=== PATIENT | male | born 1965 | race Two or more races ===

== ENCOUNTER 2025-07-22 02:31 | Emergency (ER) | payer MEDICAID, SELFPAY ==
[2025-07-22 02:33] VITALS: BMI 29.2
[2025-07-22 02:45] VITALS: BP 140/85; PULSE 115; RESP 18; TEMP 36.6; O2SAT 96
[2025-07-22] MEDS: HYDROcodone/APAP 5/325 TABLET 1 TAB PO (03:35)
[2025-07-22] MEDS: BACLOFEN 10 MG TABLET PO (03:35)
--- NOTE | 2025-07-22 03:47 | PD.EDBACK ---
ED Back Injury Pain RME/HPI General Chief Complaint: Back Pain/Injury Stated Complaint: BACK PAIN AND ARM PAIN Time Seen by Provider: 07/22/25 02:56 Arrival date/time: 07/22/25 02:31 60M with history cocaine use presents to ED with several days of upper back pain and muscle tightness that radiates to both arms. Patient denies fall/trauma, SOB, and CP. Patient works in the [employer]. Pain is worse with movement. Limitations: no limitations Related Data Home Medications ?Medication ?Instructions ?Recorded ?Confirmed rivaroxaban 10 mg tablet (Xarelto) 10 mg PO QDAY #11 tabs 06/03/15 Previous Rx's ?Medication ?Instructions ?Recorded Hydrocodone/Acetaminophen * (NORCO 1 tab PO Q6H PRN PAIN #30 tabs 06/01/15 10/325 *) lactulose 20 gram/30 mL oral 20 gm PO QID PRN moderate 06/01/15 solution constipation ##2 azithromycin 250 mg tablet See Rx Instructions PO .COMPLEX #6 04/27/20 (Zithromax Z-Srinivasa) tabs baclofen 5 mg tablet 5 mg PO BID PRN muscle spasm #14 07/22/25 tabs Allergies Allergy/AdvReac Type Severity Reaction Status Date / Time No Known Allergies Allergy Verified 07/22/25 02:32 Review of Systems Review of Systems Systems Reviewed: All systems reviewed, normal except as documented Musculoskeletal Musculoskeletal: Reports as per HPI and Reports back pain Past Medical History Past Medical History CARDIAC: Negative Congestive Heart Failure RESPIRATORY: Negative Chronic Obstructive Pulmonary Disease (COPD) GENITOURINARY: Negative Renal Disease ENDOCRINE: Negative Diabetes Mellitus Type 1 or Diabetes Mellitus Type 2 Social History SMOKING STATUS: Never smoker ED Exam General Limitations: Present no limitations General appearance: Present alert and in no apparent distress Head Head exam: Present atraumatic Neck Neck exam: Present normal inspection, full ROM and trachea midline Chest Chest inspection: Present normal inspection and symmetric chest wall rise Back Exam Back exam: Present normal inspection and full ROM Neurological Exam Neurological exam: Present alert and oriented X3 Psychiatric Psychiatric exam: Present normal affect and normal mood Skin Skin exam: Present warm, dry, intact and normal color Course Quality Measures none Orders Category Date Time Status Baclofen [Lioresal] Med 07/22/25 02:56 Discontinued 10 mg PO X1 ONE HYDROcodone*/APAP 5/325 [[place] 5/325] Med 07/22/25 02:56 Discontinued 1 tab PO X1 ONE Vital Signs Vital signs: Vital Signs Temperature 97.8 F 07/22/25 02:45 Pulse Rate 115 H 07/22/25 02:45 Respiratory Rate 18 07/22/25 02:45 Blood Pressure 140/85 H 07/22/25 02:45 Pulse Oximetry (%) 96 07/22/25 02:45 Oxygen Delivery Method Room Air 07/22/25 02:45 O2 at 96% on RA and WNLs Back Pain / Injury MDM Narrative MDM Narrative:: 60M with history cocaine use presents to ED with several days of upper back pain and muscle tightness that radiates to both arms. Patient denies fall/trauma, SOB, and CP. Patient works in the [employer]. Pain is worse with movement. Physical exam reveals normal WOB. ROM intact. No midline back tenderness. Speech normal. Gait normal. Patient is afebrile, calm, and alert. Meds and debt management counselor given. Patient data External records reviewed:: [facility] previous records Clinical information provided by:: patient Social determinants that could affect healthcare access:: substance use Patient has the following chronic illnesses:: drug use How is presenting disease/condition affected by chronic disease/condition?: exacerbated by Evaluation data The following diagnostics were reviewed and interpreted by me:: other (specify) (none) Lab and/or radiology exams considered but not ordered:: not ordered Interpretation Summary: n/a Medications / Prescriptions Medications or Prescriptions considered but not ordered:: ordered Medication administrations:: Medication Administration History Discontinued Medications Hydrocodone Bitart/Acetaminophen (Hydrocodone/Apap 5/325 Tablet) 1 tab PO X1 ONE Stop: 07/22/25 02:57 Last Admin: 07/22/25 03:35 Dose: 1 tab Documented By: JESÚS Baclofen (Baclofen 10 Mg Tablet) 10 mg PO X1 ONE Stop: 07/22/25 02:57 Last Admin: 07/22/25 03:35 Dose: 10 mg Documented By: JESÚS above Consultations Consultation(s) initiated? (list below): No Diagnosis Differential diagnosis back pain/injury: lumbar radiculopathy, sciatica, strain of lumbar region, renal colic, pyelonephritis, thoracic back pain, AAA and discitis Most likely diagnosis given after review of the tests above:: strain of thoracic region Admission Indicated Admission indicated?: not indicated Admission Request Was there a request for admission?: No Disposition Plan Disposition Plan: Discharge Discharge Attestation Discharge Attestation: The patient and all family members were given an opportunity to ask questions and understood the discharge instructions. Discharge instructions specifically effects, indications for sooner follow up or return to the emergency department, and the expected course of current diagnosis. Patient condition: Stable Discharge Plan Plan Patient Disposition: HOME (Self Care) Discharge Disposition comment: Stable Prescriptions/Referrals Prescriptions/Med Rec: New baclofen 5 mg tablet 5 mg PO BID PRN (Reason: muscle spasm) Qty: 14 0RF No Action lactulose 20 GM/30 ML syrup 20 gm PO QID PRN (Reason: moderate constipation) Qty: 2 0RF Hydrocodone/Acetaminophen * (NORCO 10/325 *) 1 TAB tablet 1 tab PO Q6H PRN (Reason: PAIN) Qty: 30 0RF rivaroxaban [Xarelto] 10 MG tablet 10 mg PO QDAY Qty: 11 azithromycin [Zithromax Z-Srinivasa] 250 mg tablet See Rx Instructions .ROUTE .COMPLEX Qty: 6 0RF Rx Instructions: take 500 mg today (day 1), then 250 mg for 4 days (days 2-5) Problem List Clinical Impression: Strain of thoracic region Patient/Caregiver Discharge Instructions Education Materials: ED Back Sprain/Strain Additional Instructions: Please follow-up with PCP within 24-48 hours and return immediately if symptoms worsen. If problem persists, recommend outpatient PT and/or MRI follow-up. In the meantime, rest, use ice/heat, and/or compression. Print Language: Czech Stand Alone Forms: Patient Portal Info Letter JAY/VIVIANE Supervising Physician JAY/VIVIANE Supervising Physician: Dr. Contreras
== END 2025-07-22 03:59 | disposition home or self-care (01) ==
LOC: SERX 03:00
PROVIDERS: Emergency Provider Emergency Medicine
DX: S29.012A Strain of muscle and tendon of back wall of thorax, initial encounter (principal); Z79.01 Long term (current) use of anticoagulants; X58.XXXA Exposure to other specified factors, initial encounter
CPT/HCPCS: 99283; A9270

== ENCOUNTER 2025-07-24 09:36 | Emergency (ER) | payer MEDICAID, SELFPAY ==
[2025-07-24 09:39] VITALS: BMI 29.2
[2025-07-24 09:47] VITALS: BP 143/85; PULSE 110; RESP 18; TEMP 36.8; O2SAT 96
--- NOTE | 2025-07-24 10:18 | EDNOTE_ITS ---
<Statement entered by Amira Hilario MD - 08/08/25 14:16> As co-signing physician, I was present and available for consult prn. I concur with the plan and care as documented by the midlevel provider. ED Back Injury Pain RME/HPI General Chief Complaint: Back Pain/Injury Stated Complaint: MID-UPPER BACK PAINX2 DAYS Time Seen by Provider: 07/24/25 09:40 Arrival date/time: 07/24/25 09:36 This is a 60-year-old male that comes into the emergency room with complaints of upper back pain in between his shoulder blades. 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 Patient states that he felt like he overdid it 1 day and was seen in the emergency room a couple days ago and thought he was prescribed Overton but in reality he was prescribed baclofen. Patient states that he was not given any and anti-inflammatories. Patient denies any trauma. Patient denies any numbness tingling. Related Data Home Medications ?Medication ?Instructions ?Recorded ?Confirmed rivaroxaban 10 mg tablet (Xarelto) 10 mg PO QDAY #11 t abs 06/03/15 Previous Rx's ?Medication ?Instructions ?Recorded Hydrocodone/Acetaminophen * (NORCO 1 tab PO Q6H PRN PA IN #30 tabs 06/01/15 10/325 *) lactulose 20 gram/30 mL oral 20 gm PO QID PRN moderate 06/01/15 solution constipation ##2 azithromycin 250 mg tablet See Rx Instructions PO .COM PLEX #6 04/27/20 (Zithromax Z-Srinivasa) tabs baclofen 5 mg tablet 5 mg PO BID PRN muscle spasm #14 07/22/25 tabs ibuprofen 800 mg tablet 800 mg PO Q6H PRN pain #20 t abs 07/24/25 Allergies Allergy/AdvReac Type Severity Reaction Status Date / Time No Known Allergies Allergy Verified 07/24/25 09:44 Review of Systems Review of Systems Systems Reviewed: All systems reviewed, normal except as documented Past Medical History Past Medical History CARDIAC: Negative Congestive Heart Failure RESPIRATORY: Negative Chronic Obstructive Pulmonary Disease (COPD) GENITOURINARY: Negative Renal Disease ENDOCRINE: Negative Diabetes Mellitus Type 1 or Diabetes Mellitus Type 2 Social History SMOKING STATUS: Never smoker ED Exam Narrative Physical exam: VITAL SIGNS: Reviewed. GENERAL APPEARANCE: Alert and interactive, follows commands, no acute distress HEAD AND FACE: Non-traumatic. ENT: PERRL, conjuctiva pink and clear, eyelid no trauma, Mucous membrane moist. NECK: Supple, nontender, no nuchal rigidity. CHEST: No tenderness, no crepitus, no paradoxical movement, no retractions. LUNGS: breathing even and unlabored HEART: Regular rate, cap refill less than 2 seconds ABDOMEN: Soft, nondistended, no guarding, nontender NEUROLOGICAL: Gross motor function intact sensory function intact, Appropriate for age. MUSCULOSKELETAL: low back nontender, full range of motion. no midline tenderness, no meningismus, no step offs, mild pain to palpation to upper back around lateral muscles of the upper back. No pain over spinal processes. EXTREMITIES: No redness no swelling no skin breakdown on bilateral foot and leg. Distal neurovascular status intact bilateral foot SKIN: Color pink, dry, no rash, no lacerations, no abrasions, no contusions. Course Quality Measures none Orders Category Date Time Status Ketorolac Inj [Toradol Inj] Med 07/24/25 10:18 Discontinued 60 mg IM X1 ONE Metoclopramide [Reglan] Med 07/24/25 10:18 Discontinued 10 mg PO X1 ONE Vital Signs Vital signs: Vital Signs Temperature 98.2 F 07/24/25 09:47 Pulse Rate 110 H 07/24/25 09:47 Respiratory Rate 18 07/24/25 09:47 Blood Pressure 143/85 H 07/24/25 09:47 Pulse Oximetry (%) 96 07/24/25 09:47 Oxygen Delivery Method Room Air 07/24/25 09:47 Back Pain / Injury MDM Narrative MDM Narrative:: I spoke to patient at length. And explained to him that he was not given Overton at that time. Patient was given baclofen to go home with. It appears that he was not given anti-inflammatories because it was thought that he was on Xarelto. Patient said he was only on Xarelto after surgery but he is no longer taking any medications at this time. Will prescribe anti-inflammatories and told patient to take this with muscle relaxers. Patient told to follow-up with primary provider in 1 to 2 days. [place] to emergency room symptoms change or worsen. Dragon dictation: Although this document has been carefully reviewed, there may still be some phonetic and other typographical errors. These errors are purely grammatical due to imperfections in the software program and should not be construed in any way to compromise the substance of the patient's medical care during this visit. Patient data External records reviewed:: [facility] previous records Clinical information provided by:: patient Social determinants that could affect healthcare access:: none Patient has the following chronic illnesses:: None How is presenting disease/condition affected by chronic disease/condition?: no chronic disease Evaluation data The following diagnostics were reviewed and interpreted by me:: other (specify) Lab and/or radiology exams considered but not ordered:: None Interpretation Summary: See note Medications / Prescriptions Medications or Prescriptions considered but not ordered:: None Medication administrations:: Medication Administration History Discontinued Medications Ketorolac Tromethamine (Ketorolac Inj 60 Mg/2 Ml Vial) 60 mg IM X1 ONE Stop: 07/24/25 10:19 Last Admin: 07/24/25 10:43 Dose: 60 mg Documented By: [facility] Metoclopramide HCl (Metoclopramide 5 Mg Tablet) 10 mg PO X1 ONE Stop: 07/24/25 10:19 Last Admin: 07/24/25 10:43 Dose: 10 mg Documented By: [facility] See [facility] Consultations Consultation(s) initiated? (list below): No Diagnosis Most likely diagnosis given after review of the tests above:: Back pain Admission Indicated Admission indicated?: not indicated Admission Request Was there a request for admission?: No Disposition Plan Disposition Plan: Discharge Discharge Attestation Discharge Attestation: The patient and all family members were given an opportunity to ask questions an d understood the discharge instructions. Discharge instructions specifically effects, indications for sooner follow up or return to the emergency department, and the expected course of current diagnosis. Patient condition: Stable Discharge Plan Plan Patient Disposition: HOME (Self Care) Patient condition on transfer: Stable Prescriptions/Referrals Prescriptions/Med Rec: New ibuprofen 800 mg tablet 800 mg PO Q6H PRN (Reason: pain) Qty: 20 0RF No Action lactulose 20 GM/30 ML syrup 20 gm PO QID PRN (Reason: moderate constipation) Qty: 2 0RF Hydrocodone/Acetaminophen * (NORCO 10/325 *) 1 TAB tablet 1 tab PO Q6H PRN (Reason: PAIN) Qty: 30 0RF rivaroxaban [Xarelto] 10 MG tablet 10 mg PO QDAY Qty: 11 azithromycin [Zithromax Z-Srinivasa] 250 mg tablet See Rx Instructions .ROUTE .COMPLEX Qty: 6 0RF Rx Instructions: take 500 mg today (day 1), then 250 mg for 4 days (days 2-5) baclofen 5 mg tablet 5 mg PO BID PRN (Reason: muscle spasm) Qty: 14 0RF Referrals: Noe Francisco MD [Primary Care Provider, Family Practice] - In 1 week Problem List Clinical Impression: Back pain Patient/Caregiver Discharge Instructions Discharge Activity: activity as tolerated Education Materials: ED Back Pain (Acute or Chronic) Additional Instructions: Eric un chasity con cordova medico de cabecera en las proximas 24-48 horas. Regrese a la ludwin de emergencias si hay evidencia de que los signos o sintomas empeoran. Print Language: Wolof Stand Alone Forms: Saida Award Info., Patient Portal Info Letter PA/SMASHER Supervising Physician PA/SMASHER Supervising Physician: [email or web address]
[2025-07-24] MEDS: KETOROLAC INJ 60 MG/2 ML VIAL IM (10:43)
[2025-07-24] MEDS: METOCLOPRAMIDE 5 MG TABLET 10 MG PO (10:43)
== END 2025-07-24 11:11 | disposition home or self-care (01) ==
PROVIDERS: Emergency Provider Nurse Practitioner Family; PCP Family Medicine
DX: S39.92XA Unspecified injury of lower back, initial encounter (principal); X50.0XXA Overexertion from strenuous movement or load, initial encounter
CPT/HCPCS: 96372; 99283; J1885; A9270

== ENCOUNTER 2025-08-02 00:13 | Emergency (ER) | payer MEDICAID, SELFPAY ==
[2025-08-02 00:14] VITALS: BMI 29.2
[2025-08-02 00:37] VITALS: BP 120/78; PULSE 112; RESP 18; TEMP 37.3; O2SAT 97
--- NOTE | 2025-08-02 00:48 | PD.EDURI ---
Upper Respiratory Inf. RME/HPI General Chief Complaint: Flu Like Symptoms Stated Complaint: COUGH X4 DAYS Time Seen by Provider: 08/02/25 00:44 Arrival date/time: 08/02/25 00:13 This is a case of 60-year-old male with no medical history came into the emergency room due to productive cough and nasal congestion for 4 days patient denies any chest pain or shortness of breath persistence of the symptoms this patient decided to start consult here in the emergency room Limitations: no limitations Related Data Home Medications ?Medication ?Instructions ?Recorded ?Confirmed rivaroxaban 10 mg tablet (Xarelto) 10 mg PO QDAY #11 tabs 06/03/15 Previous Rx's ?Medication ?Instructions ?Recorded Hydrocodone/Acetaminophen * (NORCO 1 tab PO Q6H PRN PAIN #30 tabs 06/01/15 10 *) lactulose 20 gram/30 mL oral 20 gm PO QID PRN moderate 06/01/15 solution constipation ##2 azithromycin 250 mg tablet See Rx Instructions PO .COMPLEX #6 04/27/20 (Zithromax Z-Srinivasa) tabs baclofen 5 mg tablet 5 mg PO BID PRN muscle spasm #14 07/22/25 tabs ibuprofen 800 mg tablet 800 mg PO Q6H PRN pain #20 tabs 07/24/25 albuterol sulfate 90 mcg/actuation 2 puff inhalation Q6H PRN 08/02/25 aerosol inhaler (Ventolin HFA) shortness of breath or wheezing #8.5 grams amoxicillin 875 mg-potassium 1 tab PO Q12H #20 tabs 08/02/25 clavulanate 125 mg tablet prednisone 20 mg tablet See Taper PO QDAY 5 days #5 tabs 08/02/25 promethazine-DM 6.25 mg-15 mg/5 mL 5 ml PO Q6H PRN cough #118 mL 08/02/25 oral syrup Allergies Allergy/AdvReac Type Severity Reaction Status Date / Time No Known Allergies Allergy Verified 08/02/25 00:13 Review of Systems Review of Systems Systems Reviewed: All systems reviewed, normal except as documented Constitutional Constitutional: Reports system reviewed and no additional complaints, except as documented and Reports as per HPI Cardiovascular Cardiovascular: Reports system reviewed and no additional complaints, except as documented and Reports as per HPI Respiratory Respiratory: Reports system reviewed and no additional complaints, except as documented and Reports as per HPI Gastrointestinal Gastrointestinal: Reports system reviewed and no additional complaints, except as documented and Reports as per HPI Genitourinary Genitourinary: Reports system reviewed and no additional complaints, except as documented and Reports as per HPI Musculoskeletal Musculoskeletal: Reports system reviewed and no additional complaints, except as documented and Reports as per HPI Neurologic Neurologic: Reports system reviewed and no additional complaints, except as documented and Reports as per HPI Past Medical History Past Medical History CARDIAC: Negative Congestive Heart Failure RESPIRATORY: Negative Chronic Obstructive Pulmonary Disease (COPD) GENITOURINARY: Negative Renal Disease ENDOCRINE: Negative Diabetes Mellitus Type 1 or Diabetes Mellitus Type 2 Social History SMOKING STATUS: Never smoker ED Exam General Limitations: Present no limitations General appearance: Present alert, in no apparent distress and other (Patient is awake alert oriented not in distress nontoxic looking well-hydrated well-nourished) Head Head exam: Present atraumatic, normocephalic and normal inspection Eye Eye exam: Present normal appearance, PERRL and EOMI ENT ENT exam: Present normal exam, normal oropharynx, mucous membranes moist and other (HEENT exam is normal and unremarkable) Neck Neck exam: Present normal inspection, full ROM and trachea midline; Absent tenderness, meningismus, lymphadenopathy or thyromegaly Chest Chest inspection: Present normal inspection and symmetric chest wall rise; Absent tenderness Respiratory Respiratory exam: Present normal lung sounds bilaterally and wheezes (Wheezing right lower lung field no crackles no rales no retraction no stridor); Absent respiratory distress, stridor, accessory muscle use or prolonged expiratory phase Cardiovascular Cardiovascular exam: Present regular rate, normal rhythm and normal heart sounds; Absent bradycardia, tachycardia, irregular rhythm, systolic murmur, diastolic murmur or rubs Abdominal Exam Abdominal exam: Present soft and normal bowel sounds; Absent distention, tenderness, guarding, rebound, rigidity, diminished bowel sounds, hyperactive bowel sounds, hypoactive bowel sounds or organomegaly Extremities Exam Extremities exam: Present normal inspection and full ROM Back Exam Back exam: Present normal inspection and full ROM Neurological Exam Neurological exam: Present alert, oriented X3, CN II-XII intact, normal gait and reflexes normal; Absent motor sensory deficit Psychiatric Psychiatric exam: Present normal affect and normal mood Skin Skin exam: Present warm, dry, intact and normal color Course Quality Measures none Orders Category Date Time Status Albuterol/Ipratr Rt Lenora [Duoneb Rt Lenora] Med 08/02/25 00:45 Discontinued 3 ml INH X1 ONE Dexamethasone Inj [Decadron Inj] Med 08/02/25 00:45 Discontinued 10 mg IM X1 ONE Vital Signs Vital signs: Vital Signs Temperature 99.1 F 08/02/25 00:37 Pulse Rate 112 H 08/02/25 00:37 Respiratory Rate 18 08/02/25 00:37 Blood Pressure 120/78 08/02/25 00:37 Pulse Oximetry (%) 97 08/02/25 00:37 Oxygen Delivery Method Room Air 08/02/25 00:37 Oxygen saturation is 97% in room air Upper Respiratory Infection MDM Narrative MDM Narrative:: This is a case of 60-year-old male with no medical history came into the emergency room due to productive cough and nasal congestion for 4 days patient denies any chest pain or shortness of breath persistence of the symptoms this patient decided to start consult here in the emergency room physical examination patient is awake alert oriented not in distress nontoxic looking well-hydrated well-nourished HEENT exam is normal lung sounds noted wheezing right lower lung field no crackles no rales no retraction no stridor the rest of the physical examination neurological exam is normal and unremarkable based on my physical examination and history patient symptoms suggestive of acute bronchitis patient was given breathing treatment and steroid patient condition markedly improved no shortness of breath lungs sound is clear no wheezing noted patient was prescribed with Augmentin for acute bronchitis with Ventolin inhaler prednisone and cough medication he will follow-up with PCP in 2 days for reevaluation for any worsening symptoms or any emergent concern return emergency to the emergency room immediately or call 911 keep hydrated Patient was discharged with comfortable condition walking with stable gait. Patient verbalized no further complains explained diagnosis and answered patient question. Patient is comfortable with the proposed management plan including the need to follow up with his/her primary care physician and any specialist if applicable Discussed patient for any urgent condition or worsening sx, He/She needed to go to emergency room immediately or call 911. Patient acknowledge the responsibility to follow up as instructed and to monitor her/his symptoms. For any persistence of the symptoms for more than 3-5 days return precaution advised. Discussed the result of the test and was given printed discharge instruction Patient data External records reviewed:: [facility] previous records Clinical information provided by:: patient Social determinants that could affect healthcare access:: none Patient has the following chronic illnesses:: None How is presenting disease/condition affected by chronic disease/condition?: no chronic disease Evaluation data The following diagnostics were reviewed and interpreted by me:: other (specify) (None) Lab and/or radiology exams considered but not ordered:: None Interpretation Summary: None Medications / Prescriptions Medications or Prescriptions considered but not ordered:: Given Medication administrations:: Medication Administration History Discontinued Medications Albuterol/Ipratropium (Albuterol/Ipratropium (Duoneb) Rt Lenora 3 Ml Nebu) 3 ml INH X1 ONE Stop: 08/02/25 00:46 Dexamethasone Sodium Phosphate (Dexamethasone Sod Phos Inj 10 Mg/Ml Vial) 10 mg IM X1 ONE Stop: 08/02/25 00:46 Given Consultations Consultation(s) initiated? (list below): No Diagnosis Upper Respiratory Differential Diagnosis: upper respiratory infection, otitis media, sinusitis, viral infection, bronchitis and pharyngitis Most likely diagnosis given after review of the tests above:: Acute bronchitis Admission Indicated Admission indicated?: not indicated Explain why admission is indicated or not indicated:: Not indicated Admission Request Was there a request for admission?: No Admission Attestation Admission request attestation: Not indicated Disposition Plan Disposition Plan: Discharge Discharge Attestation Discharge Attestation: The patient and all family members were given an opportunity to ask questions and understood the discharge instructions. Discharge instructions specifically effects, indications for sooner follow up or return to the emergency department, and the expected course of current diagnosis. Patient condition: Stable Discharge Plan Plan Patient Disposition: HOME (Self Care) Patient condition on transfer: Stable Prescriptions/Referrals Prescriptions/Med Rec: New amoxicillin-pot clavulanate 875-125 mg tablet 1 tab PO Q12H Qty: 20 0RF promethazine-DM 6.25-15 mg/5 mL syrup 5 ml PO Q6H PRN (Reason: cough) Qty: 118 0RF prednisone 20 mg tablet See Taper PO QDAY 5 Days Qty: 5 0RF Taper: Prednisone Taper 20 mg DAILY for 2 Days and 0 Hour 10 mg DAILY for 2 Days and 0 Hour 5 mg DAILY for 7 Days and 0 Hour albuterol sulfate [Ventolin HFA] 90 mcg/actuation HFA aerosol inhaler 2 puff inhalation Q6H PRN (Reason: shortness of breath or wheezing) Qty: 8.5 0RF No Action lactulose 20 GM/30 ML syrup 20 gm PO QID PRN (Reason: moderate constipation) Qty: 2 0RF Hydrocodone/Acetaminophen * (NORCO 10/325 *) 1 TAB tablet 1 tab PO Q6H PRN (Reason: PAIN) Qty: 30 0RF rivaroxaban [Xarelto] 10 MG tablet 10 mg PO QDAY Qty: 11 azithromycin [Zithromax Z-Srinivasa] 250 mg tablet See Rx Instructions .ROUTE .COMPLEX Qty: 6 0RF Rx Instructions: take 500 mg today (day 1), then 250 mg for 4 days (days 2-5) baclofen 5 mg tablet 5 mg PO BID PRN (Reason: muscle spasm) Qty: 14 0RF ibuprofen 800 mg tablet 800 mg PO Q6H PRN (Reason: pain) Qty: 20 0RF Problem List Clinical Impression: Acute bronchitis Patient/Caregiver Discharge Instructions Education Materials: Acute Bronchitis Additional Instructions: Follow-up with your primary care physician in 2 days for reevaluation worsening symptoms or any emergent concern call 911 or go to the nearest emergency room take your medication as directed finish the course of antibiotic keep hydrated Print Language: Welsh Stand Alone Forms: Saida Award Info., Patient Portal Info Letter PA/SENIOR SEARCH MARKETING ANALYST Supervising Physician PA/VIVIANE Supervising Physician: Dr. Hudson
[2025-08-02] MEDS: DEXAMETHASONE SOD PHOS INJ 10 MG/ML VIAL IM (01:17)
[2025-08-02] MEDS: ALBUTEROL/IPRATROPIUM (Duoneb) RT SOL 3 ML NEBU INH (01:22)
[2025-08-02 01:23] VITALS: PULSE 98; RESP 20; O2SAT 99
== END 2025-08-02 01:23 | disposition home or self-care (01) ==
PROVIDERS: Emergency Provider Emergency Medicine; PCP Registered Nurse Community Health
DX: J20.9 Acute bronchitis, unspecified (principal)
CPT/HCPCS: 94640; 96372; 99282; A9270; J1100

== ENCOUNTER 2025-08-02 21:16 | Emergency (ER) | payer MEDICAID, SELFPAY ==
[2025-08-02 21:16] VITALS: BMI 27.3
[2025-08-02] MEDS: Magnesium Sulfate 2 GM Ivpb 2 GM/50 ML BAG IV (21:26)
[2025-08-02] MEDS: RINGERS LACTATED 1000 ML 1,000 ML 999 ML IV (21:30)
[2025-08-02 21:37] LABS: Basophils # (Auto) 0.0 Thou/mm3 (0.0-0.2); Basophils % (Auto) 0 % (0-2.5); Eosinophils # (Auto) 0.0 Thou/mm3 (0.0-0.5); Eosinophils % (Auto) 0 % (0-10); Hematocrit 44.0 % (41.0-53.0); Hemoglobin 13.7 g/dL (13.5-16.0); Immature Granulocytes Auto 0.36 Thou/mm3 (0.00-0.00); Lymphocytes # (Auto) 3.5 Thou/mm3 (1.0-4.8); Lymphocytes % (Auto) 28 % (10-50); Mean Corpuscular HGB Conc 31.1 g/dl (31.0-37.0); Mean Corpuscular Hemoglobin 31.3 pg (25.0-35.0); Mean Corpuscular Volume 101 fL (80-100); Monocytes # (Auto) 1.0 Thou/mm3 (0.0-0.8); Monocytes % (Auto) 8 % (0-12); Neutrophils # (Auto) 7.6 Thou/mm3 (1.8-7.7); Neutrophils % (Auto) 61 % (37-80); Nucleated Red Blood Cell # 0.02 Thou/mm3 (0.00-0.00); Nucleated Red Blood Cell % 0 /100 WBC (0); Platelet Count 349 Thou/mm3 (140-440); RDW Standard Deviation 47.1 fL (35.1-43.9); Red Blood Count 4.38 Miln/mm3 (4.50-5.90); White Blood Count 12.4 Thou/mm3 (3.8-10.6)
[2025-08-02] MEDS: CALCIUM CHLORIDE 10% INJ 10 ML SYRG IV ×2 (21:40→22:40)
--- NOTE | 2025-08-02 21:45 | PD.EDCPR ---
ED CPR RME/HPI General Chief Complaint: Cardiac Arrest/CPR Stated Complaint: USHA KEANE Arrival date/time: 08/02/25 21:16 RME / HPI Initial findings in the field: unresponsive and VTACH/VFIB ROSC in the field: No Associated injuries: No Treatments prior to arrival: BMV, chest compressions, defibrillated shocks #, epinephrine mgs # and amiodarone RME / HPI narrative: DR. MOORE MAIN ED EVALUATION: Patient suddenly collapsed at home, found unresponsive and pulseless with bystander CPR in progress at time of Distribution Coordinator arrival. Patient ventilated via BVM, found to be in V-tach, was shocked x3 and administered multiple Epi's en route without response. Upon arrival to ED, CPR in progress. Patient unresponsive, pulseless, without audible heart tones. PMH: Unremarkable PSH: Unknown Social: Unknown Related Data Home Medications ?Medication ?Instructions ?Recorded ?Confirmed rivaroxaban 10 mg tablet (Xarelto) 10 mg PO QDAY #11 tabs 06/03/15 Previous Rx's ?Medication ?Instructions ?Recorded Hydrocodone/Acetaminophen * (NORCO 1 tab PO Q6H PRN PAIN #30 tabs 06/01/15 10/325 *) lactulose 20 gram/30 mL oral 20 gm PO QID PRN moderate 06/01/15 solution constipation ##2 azithromycin 250 mg tablet See Rx Instructions PO .COMPLEX #6 04/27/20 (Zithromax Z-Srinivasa) tabs baclofen 5 mg tablet 5 mg PO BID PRN muscle spasm #14 07/22/25 tabs ibuprofen 800 mg tablet 800 mg PO Q6H PRN pain #20 tabs 07/24/25 albuterol sulfate 90 mcg/actuation 2 puff inhalation Q6H PRN 08/02/25 aerosol inhaler (Ventolin HFA) shortness of breath or wheezing #8.5 grams amoxicillin 875 mg-potassium 1 tab PO Q12H #20 tabs 08/02/25 clavulanate 125 mg tablet prednisone 20 mg tablet See Taper PO QDAY 5 days #5 tabs 08/02/25 promethazine-DM 6.25 mg-15 mg/5 mL 5 ml PO Q6H PRN cough #118 mL 08/02/25 oral syrup Allergies Allergy/AdvReac Type Severity Reaction Status Date / Time No Known Allergies Allergy Verified 08/02/25 00:13 Review of Systems Review of Systems ROS Unobtainable: unobtainable due to mental status Past Medical History Past Medical History CARDIAC: Negative Congestive Heart Failure RESPIRATORY: Negative Chronic Obstructive Pulmonary Disease (COPD) GENITOURINARY: Negative Renal Disease ENDOCRINE: Negative Diabetes Mellitus Type 1 or Diabetes Mellitus Type 2 Social History SMOKING STATUS: Never smoker ED Exam Narrative Physical exam: GENERAL APPEARANCE: Unresponsive to deep sternal rub with spontaneous respiration, CPR in progress, GCS 3 HEENT: Normocephalic, atraumatic; pupils 9 mm fixed, absent corneal reflex, lips cyanotic NECK: Supple LUNGS: No spontaneous respirations, ventilated via BVM, course breath sounds bilaterally with ventilation HEART: No pulse, no heart tones, good pulse with CPR ABDOMEN: Mildly distended; soft EXTREMITIES: atraumatic; cyanotic, trace edema NEUROLOGIC: Obtunded, unresponsive, no response to painful stimuli, extremities flaccid SKIN: Cool, mottled, cyanotic Course Quality Measures none Orders Category Date Time Status CBC Stat Lab 08/02/25 21:18 Completed CMP [Comprehensive Metabolic Panel] Stat Lab 08/02/25 21:18 Completed Troponin I Stat Lab 08/02/25 21:18 Completed Calcium Chloride 10% Abboject Med 08/02/25 21:39 Discontinued 10 ml IV .STK-MED ONE Calcium Chloride 10% Abboject Med 08/02/25 21:50 Discontinued 10 ml IV X1 ONE Calcium Chloride 10% Abboject Med 08/02/25 21:51 Discontinued 10 ml IV X1 ONE Etomidate Inj [Amidate Inj] Med 08/02/25 21:19 Discontinued 20 mg .ROUTE .STK-MED ONE Magnesium Sulfate 2 GM Ivpb [Magnesium Sulfate Ivpb] Med 08/02/25 21:50 Discontinued 2 gm in 50 ml IV X1 Magnesium Sulfate 2 GM Ivpb [Magnesium Sulfate Ivpb] 50 Med 08/02/25 21:26 Discontinued ml IV .STK-MED Ringers Lactated 1000 ml [Lactated Ringers] 1,000 ml Med 08/02/25 21:57 Discontinued IV 999 mls/hr Rocuronium Inj [Zemuron Inj] Med 08/02/25 21:19 Discontinued 100 mg .ROUTE .STK-MED ONE PROCEDURES: Intubation Time out performed: Yes sedative: none Mg Given: 0 Mg Given: 0 Laryngoscope: fiber optic video scope Assist Device Used: fiber optic device ET Tube Size: 7.5 ET Tube Uncuffed: Yes Tube Secured Depth (cm): 23 Tube Secured Location: lips Tube Placement Confirmation: equal breath sounds bilaterally, no breath sounds over epigastrium and confirmation by capnometry Patient Tolerated Procedure: no complications Intubation Complications: none Cardiac Arrest / CPR MDM Narrative MDM Narrative:: Scribe Attestation: Allyson Santamaria, am scribing for and in the presence of Dr. Moore. Provider Notation: Although this document has been carefully reviewed, there may still be some phonetic and other typographical errors. These errors are purely grammatical due to imperfections in the software program and should not be construed in any way to compromise the substance of the patient's medical care during this visit. Patient suddenly collapsed at home, found unresponsive and pulseless with bystander CPR in progress at time of Distribution Coordinator arrival. Patient ventilated via BVM, found to be in V-tach, was shocked x3 and administered multiple Epi's en route without response. Patient immediately triaged and placed on monitored bed, CPR continued, underwent emergency intubation (please see procedure note). ACLS measures continued. Patient developed palpable pulses for brief period of time, rhythm v-fib for which underwent defibrilation on multiple occasions, anti-arrhythmics, CA+, Mg+, NaC2, and despite aggressive measures, no ROSC achieved. Code called at 21:44. Bedside US demonstrated cardiac stand-still, family notified. Finall diagnosis is cardiopulmonary arrest. Patient data External records reviewed:: [facility] previous records (Reviewed prior ED records from 08/02/2025 (Today). Patient was seen for Acute bronchitis.) and EMS form Clinical information provided by:: EMS Social determinants that could affect healthcare access:: none Patient has the following chronic illnesses:: None reported How is presenting disease/condition affected by chronic disease/condition?: no chronic disease Evaluation data The following diagnostics were reviewed and interpreted by me:: lab results Lab and/or radiology exams considered but not ordered:: None Interpretation Summary: Laboratory diagnostics pending. Medications / Prescriptions Medications or Prescriptions considered but not ordered:: None Medication administrations:: Medication Administration History Discontinued Medications Calcium Chloride (Calcium Chloride 10% Inj 10 Ml Syrg) Confirm Administered Dose 10 ml IV .STK-MED ONE Stop: 08/02/25 21:40 Last Admin: 08/02/25 22:39 Dose: Not Given Documented By: DT Non-Admin Reason: Duplicate Medication on eMAR Calcium Chloride (Calcium Chloride 10% Inj 10 Ml Syrg) 10 ml IV X1 ONE Stop: 08/02/25 21:51 Last Admin: 08/02/25 21:40 Dose: 10 ml Documented By: DT Calcium Chloride (Calcium Chloride 10% Inj 10 Ml Syrg) 10 ml IV X1 ONE Stop: 08/02/25 21:52 Last Admin: 08/02/25 22:40 Dose: 10 ml Documented By: DT Etomidate (Etomidate Inj 2 Mg/Ml Vial 10 Ml) Confirm Administered Dose 20 mg .ROUTE .STK-MED ONE Stop: 08/02/25 21:20 Last Admin: 08/02/25 21:52 Dose: Not Given Documented By: DT Non-Admin Reason: Cancelled by Provider Magnesium Sulfate (Magnesium Sulfate Ivpb) Confirm Administered Dose 50 mls @ ud IV .STK-MED ONE Stop: 08/02/25 21:27 Last Admin: 08/02/25 22:39 Dose: Not Given Documented By: DT Non-Admin Reason: Duplicate Medication on eMAR Magnesium Sulfate (Magnesium Sulfate Ivpb) 2 gm in 50 mls @ 25 mls/hr IV X1 ONE Stop: 08/02/25 23:49 Last Admin: 08/02/25 21:26 Dose: 25 mls/hr Documented By: DT Lactated Ringer's (Lactated Ringers) 1,000 mls @ 999 mls/hr IV .Q1H1M ONE Stop: 08/02/25 22:57 Last Infusion: 08/02/25 21:44 Dose: 999 mls/hr Documented By: Admin: 08/02/25 21:30 Dose: 999 mls/hr Documented By: DT Rocuronium [place] (Rocuronium Inj 10 Mg/Ml Vial 10 Ml) Confirm Administered Dose 100 mg .ROUTE .STK-MED ONE Stop: 08/02/25 21:20 Last Admin: 08/02/25 21:52 Dose: Not Given Documented By: DT Non-Admin Reason: Cancelled by Provider See above if any Consultations Consultation(s) initiated? (list below): No Diagnosis Cardiac arrest differential diagnosis: acute massive pulmonary embolism, acute respiratory failure, acute myocardial infarction, cardiac arrest and sudden cardiac Most likely diagnosis given after review of the tests above:: Cardiopulmonary arrest Admission Indicated Admission indicated?: not indicated Explain why admission is indicated or not indicated:: Patient Admission Request Was there a request for admission?: No Disposition Plan Disposition Plan: other (specify) () Discharge Plan Plan Patient Disposition: Prescriptions/Referrals Referrals: Markie Ribera MD [Primary Care Provider, Internal Medicine] - In 1 week Problem List Clinical Impression: Cardiopulmonary arrest Patient/Caregiver Discharge Instructions Print Language: Sammarinese
[2025-08-02 21:56] LABS: Alanine Aminotransferase 229 U/L (10-49); Albumin, Serum 3.8 gm/dL (3.4-4.8); Albumin/Globulin Ratio 1.7 (1.2-2.2); Alkaline Phosphatase 75 U/L (46-116); Anion Gap 20 (7-16); Aspartate Amino Transferase 167 U/L (0-34); BUN/Creatinine Ratio 15 Ratio (12-20); Bilirubin,Total 0.5 mg/dL (0.3-1.2); Blood Urea Nitrogen 21 mg/dL (9-23); Calcium 8.8 mg/dL (8.3-10.6); Calcium (Corrected) 9.0 mg/dL (8.5-10.1); Carbon Dioxide 18.5 mMol/L (20.0-31.0); Chloride 107 mMol/L (98-107); Creatinine (Component) 1.4 mg/dL (0.6-1.3); Estimated Creatinine Clearance 53.6 mL/min (>60); Globulin 2.2 gm/dL (2.3-3.5); Glucose 276 mg/dL (74-106); Osmolality,Calculated 301 (275-295); Potassium 4.0 mMol/L (3.4-5.1); Sodium 145 mMol/L (136-145); Total Protein 6.0 gm/dL (5.7-8.2); eGFR 57 See Note
[2025-08-02 21:57] LABS: Troponin I 0.798 ng/mL (0.0-0.045)
== END 2025-08-03 00:45 | disposition expired ==
PROVIDERS: Emergency Provider Emergency Medicine; PCP Student in an Organized Health Care Education/Training Program
DX: I46.9 Cardiac arrest, cause unspecified (principal); I47.20 Ventricular tachycardia, unspecified; I49.01 Ventricular fibrillation; Z79.01 Long term (current) use of anticoagulants
CPT/HCPCS: 31500; 92950; 36415; 36600; 80053; 82803; 84484; 85025; 94645; 96374; 96376; 99291; 99292; J0168; J0282; J3475; J3490; J7120